=== PATIENT | female | born 1985 | race Caucasian/White ===

== ENCOUNTER 2023-09-21 20:32 | Inpatient (IN) ==
[2023-09-21] MEDS: Lactated Ringers 1000 ml BAG 1,000 ML IV ONE (22:17)
[2023-09-21 23:33] LABS: INR 1.8 (0.83-1.13)
[2023-09-21 23:35] LABS: Hematocrit 12.9 % (35-45); Hemoglobin 4.4 g/dL (11.5-14.3); White Blood Count 5.4 10^3/uL (3.8-11.8)
[2023-09-22 00:02] LABS: ALT 26 U/L (7-52); AST 58 U/L (13-39); Acetaminophen < 15 mcg/mL; Albumin 3.3 g/dL (3.2-5.2); Albumin/Globulin Ratio 1.4 (1-3); Alcohol, S < 13 mg/dL (<13); Alkaline Phosphatase 42 U/L (35-149); Anion Gap 16 mmol/L (2-16); Blood Urea Nitrogen 21 mg/dL (6-24); C Reactive Protein 32.91 mg/L (<8.01); CO2 Carbon Dioxide 36 mmol/L (22-32); Calcium 8.5 mg/dL (8.6-10.3); Chloride 88 mmol/L (101-111); Creatinine, Serum 0.93 mg/dL (0.51-0.95); Direct Bilirubin 2.4 mg/dL (0.03-0.18); Globulin 2.3 g/dL (2-4); Glucose 104 mg/dL (70-100); Indirect Bilirubin 2.5 mg/dL (0.3-1.0); Lipase 59 U/L (11.0-82.0); Magnesium 2.3 mg/dL (1.9-2.7); Potassium 2.3 mmol/L (3.5-5.0); Sodium 140 mmol/L (135-145); Total Bilirubin 4.9 mg/dL (0.2-1.0); Total Protein 5.6 g/dL (6.4-8.9); eGFR CKD-EPI 80.2 (>60)
[2023-09-22 00:12] LABS: HCG Pregnancy < 0.60 mIU/mL; LDH 247 U/L (140-271)
[2023-09-22 00:20] LABS: ABS Lymphocytes 1.5 10^3/uL (1.0-4.8); ABS Monocytes 0.2 10^3/uL (0.0-0.9); ABS Neutrophils 3.6 10^3/uL (1.5-7.6); ABS Nucleated RBC 0.01 10^3/ul; Eosinophil % 0.3 %; Lymphocyte % 27.8 %; Macrocytosis 3+; Mean Corpuscular Hemoglobin 43.7 pg (27-33); Mean Corpuscular Volume 128.6 fL (80-97); Mean Platelet Volume 6.8 fL (7.5-11.2); Nucleated Red Blood Cells % 0.1 %/100WBC (0.0-0.8); Platelet Count 230 10^3/uL (150-450); Polychromasia 1+; Red Cell Distribution Width 18.7 % (12-17)
[2023-09-22 00:39] LABS: Immature Retic Fraction 0.67
[2023-09-22 01:08] LABS: Hepatitis B Surface Antigen Nonreactive (Nonreactive)
[2023-09-22 01:13] LABS: Hepatitis A Ab IgM Negative (Negative)
[2023-09-22 01:14] LABS: Hepatitis B Core IgM Nonreactive (Nonreactive)
[2023-09-22] MEDS: Iohexol 350 (CONTRAST) 500 ML MDV IV ONE (01:17)
[2023-09-22 01:26] LABS: Hepatitis C Antibody Negative (Negative)
[2023-09-22] MEDS: KCL 20 MEQ/100 ML IVPREMIX 20 MEQ/100 ML BAG IV SCH ×3 (01:36→15:11)
[2023-09-22 01:58] LABS: Corrected Retic Count 1.4 % (0.5-2.2); RBC Retic Count 1.02 10^6/ul (3.63-4.92)
[2023-09-22] MEDS ORDERED: Polyethylene Glycol 3350 17 GM PACKET PO PRN (02:20)
[2023-09-22] MEDS ORDERED: Senna TAB 8.6 mg TAB PO PRN (02:20)
[2023-09-22 02:25] LABS: % Iron Saturation 93 % (15-55); .Transferrin 155 mg/dL (203-362); Iron 202 ug/dL (50-212); Total Iron Binding Capacity 217 mcg/dL (250-450); Unsaturated Iron Binding 15 ug/dL
[2023-09-22 02:43] LABS: Ferritin 649.2 ng/mL (11-307)
[2023-09-22 03:04] LABS: Folate 2.71 ng/mL (5.90-24.80)
[2023-09-22] MEDS ORDERED: Enoxaparin 40 MG/0.4 ML SYR SUBCUT SCH (05:00)
[2023-09-22] MEDS: Pantoprazole VIAL 40 MG VIAL IV ONE (05:20)
[2023-09-22 05:35] LABS: RBC Parasite Smear No Parasites Seen (No Parasite)
[2023-09-22] MEDS: Thiamine 100 MG/ML 2 ml VIAL (200 mg) IV ONE (08:34)
[2023-09-22 08:56] LABS: ABS Lymphocytes 1.6 10^3/uL (1.0-4.8); ABS Monocytes 0.2 10^3/uL (0.0-0.9); ABS Neutrophils 3.5 10^3/uL (1.5-7.6); ABS Nucleated RBC 0.01 10^3/ul; Eosinophil % 0.6 %; Hematocrit 18.9 % (35-45); Hemoglobin 6.7 g/dL (11.5-14.3); Lymphocyte % 29.9 %; Mean Corpuscular Hemoglobin 36.6 pg (27-33); Mean Corpuscular Hgb Conc 35.2 g/dL (31-36); Mean Corpuscular Volume 104.1 fL (80-97); Mean Platelet Volume 6.9 fL (7.5-11.2); Nucleated Red Blood Cells % 0.1 %/100WBC (0.0-0.8); Platelet Count 217 10^3/uL (150-450); Red Blood Count 1.82 10^6/uL (3.63-4.92); Red Cell Distribution Width 33.3 % (12-17); White Blood Count 5.3 10^3/uL (3.8-11.8)
[2023-09-22 09:08] LABS: Albumin 3.3 g/dL (3.2-5.2); Albumin/Globulin Ratio 1.5 (1-3); Calcium 8.2 mg/dL (8.6-10.3); Creatinine, Serum 0.83 mg/dL (0.51-0.95); Globulin 2.2 g/dL (2-4); Magnesium 2.3 mg/dL (1.9-2.7); Potassium 2.7 mmol/L (3.5-5.0); Total Bilirubin 6.8 mg/dL (0.2-1.0); Total Protein 5.5 g/dL (6.4-8.9); eGFR CKD-EPI 91.9 (>60)
[2023-09-22] MEDS: Pantoprazole VIAL 40 MG VIAL IV SCH (09:36)
[2023-09-22] MEDS: Lactulose 30 ml UDC PO SCH (09:37)
[2023-09-22] MEDS: Thiamine 100 MG/ML 2 ml VIAL 200 MG in NS 0.9% 100 ml BAG 100 ML IV ONE (09:44)
[2023-09-22] MEDS: Potassium Chlor 20 meq TAB.ER PO ONE (11:30)
[2023-09-22 14:21] LABS: Hematocrit 22.1 % (35-45); Hemoglobin 7.8 g/dL (11.5-14.3)
[2023-09-22] MEDS: Phytonadione Oral Solution 5 MG/25 ML UDC PO ONE (17:28)
[2023-09-22 18:49] LABS: Chloride 96 mmol/L (101-111); Potassium 3.8 mmol/L (3.5-5.0); Sodium 137 mmol/L (135-145)
[2023-09-22 19:22] LABS: ALT 28 U/L (7-52); Albumin 3.5 g/dL (3.2-5.2); Albumin/Globulin Ratio 1.5 (1-3); Alkaline Phosphatase 43 U/L (35-149); Anion Gap 10 mmol/L (2-16); Blood Urea Nitrogen 14 mg/dL (6-24); CO2 Carbon Dioxide 31 mmol/L (22-32); Calcium 8.2 mg/dL (8.6-10.3); Creatinine, Serum 0.81 mg/dL (0.51-0.95); Globulin 2.3 g/dL (2-4); Glucose 121 mg/dL (70-100); Total Bilirubin 7.6 mg/dL (0.2-1.0); Total Protein 5.8 g/dL (6.4-8.9); eGFR CKD-EPI 94.6 (>60)
[2023-09-23 06:15] LABS: INR 1.35 (0.83-1.13)
[2023-09-23 06:40] LABS: Albumin 3.6 g/dL (3.2-5.2); Albumin/Globulin Ratio 1.5 (1-3); C Reactive Protein 23.21 mg/L (<8.01); Calcium 8.4 mg/dL (8.6-10.3); Creatinine, Serum 0.67 mg/dL (0.51-0.95); Globulin 2.4 g/dL (2-4); Magnesium 2.1 mg/dL (1.9-2.7); Potassium 3.2 mmol/L (3.5-5.0); eGFR CKD-EPI 113.9 (>60)
[2023-09-23 09:02] LABS: ABS Eosinophils 0.1 10^3/uL (0.0-0.5); ABS Monocytes 0.2 10^3/uL (0.0-0.9); ABS Neutrophils 4.1 10^3/uL (1.5-7.6); ABS Nucleated RBC 0.01 10^3/ul; Anisocytosis 3+; Burr Cells 1+; Eosinophil % 1.1 %; Hematocrit 22.6 % (35-45); Lymphocyte % 19.1 %; Macrocytosis 2+; Mean Corpuscular Hemoglobin 35.2 pg (27-33); Mean Corpuscular Hgb Conc 35.4 g/dL (31-36); Mean Corpuscular Volume 99.4 fL (80-97); Mean Platelet Volume 7.6 fL (7.5-11.2); Nucleated Red Blood Cells % 0.3 %/100WBC (0.0-0.8); Platelet Count 207 10^3/uL (150-450); Polychromasia 1+; Red Blood Count 2.28 10^6/uL (3.63-4.92); Red Cell Distribution Width 34.3 % (12-17); White Blood Count 5.4 10^3/uL (3.8-11.8)
[2023-09-23] MEDS: KCL 20 MEQ/100 ML IVPREMIX 20 MEQ/100 ML BAG IV SCH (12:39)
[2023-09-23] MEDS: Thiamine 100 MG/ML 2 ml VIAL (200 mg) IM ONE (14:01)
[2023-09-23 16:40] LABS: Protime (Maddrey) 14.5 seconds (9.5-12.8)
[2023-09-23] MEDS: Potassium Chlor 20 meq TAB.ER PO ONE (16:42)
[2023-09-23 17:03] LABS: Total Bilirubin 6.1 mg/dL (0.2-1.0)
[2023-09-24 08:14] LABS: Hemoglobin 7.3 g/dL (11.5-14.3); Mean Corpuscular Hemoglobin 35.3 pg (27-33); Mean Corpuscular Volume 100.9 fL (80-97); Mean Platelet Volume 7.2 fL (7.5-11.2); Platelet Count 156 10^3/uL (150-450); Red Blood Count 2.08 10^6/uL (3.63-4.92); White Blood Count 5.1 10^3/uL (3.8-11.8)
[2023-09-24 08:22] LABS: INR 1.19 (0.83-1.13)
[2023-09-24 08:51] LABS: Albumin 3.4 g/dL (3.2-5.2); Albumin/Globulin Ratio 1.5 (1-3); Calcium 8.5 mg/dL (8.6-10.3); Creatinine, Serum 0.64 mg/dL (0.51-0.95); Globulin 2.2 g/dL (2-4); Total Bilirubin 4.3 mg/dL (0.2-1.0); Total Protein 5.6 g/dL (6.4-8.9); eGFR CKD-EPI 115.2 (>60)
[2023-09-24 09:19] LABS: ABS Eosinophils 0.1 10^3/uL (0.0-0.5); ABS Lymphocytes 1.2 10^3/uL (1.0-4.8); ABS Monocytes 0.2 10^3/uL (0.0-0.9); ABS Neutrophils 3.6 10^3/uL (1.5-7.6); Anisocytosis 3+; Eosinophil % 1.7 %; Lymphocyte % 23.7 %; Macrocytosis 1+; Polychromasia 2+
[2023-09-24] MEDS: KCL 20 MEQ/100 ML IVPREMIX 20 MEQ/100 ML BAG IV SCH ×2 (10:16→14:15)
[2023-09-24 11:15] LABS: Ceruloplasmin 34.7 mg/dL
[2023-09-24 13:04] LABS: Cytomegalovirus IgG Antibody Negative (Negative); EBV Capsid Ag IgG Ab Positive (Negative); EBV Capsid Ag IgM Ab Negative (Negative); Epstein-Barr Nuclear Antigen Positive (Negative)
[2023-09-24 16:29] LABS: Parvovirus (B19) IgG Antibody Positive (Negative); Parvovirus (B19) IgM Antibody Negative (Negative)
[2023-09-24 17:49] LABS: Haptoglobin 95 mg/dL (30 - 200)
[2023-09-24 18:26] LABS: Hematocrit 22.5 % (35-45); Hemoglobin 7.8 g/dL (11.5-14.3)
[2023-09-24] MEDS ORDERED: Zosyn per Pharmacy NOTE FOLLOW UP SCH (19:00)
[2023-09-24] MEDS: ZOSYN 3.375 GM x ONE DOSE over 30 miuntes IV (22:01)
[2023-09-24] MEDS: Amoxicillin/Clavul 500/125 TAB (Augmentin 500 mg tab) PO SCH (22:05)
[2023-09-25] MEDS ORDERED: Zosyn per Pharmacy NOTE FOLLOW UP SCH (03:00)
[2023-09-25] MEDS: Piperacillin/Tazobac 3.375 BAG 3.375 GM/100 ML BAG IV ONE (03:06)
[2023-09-25 06:39] LABS: Albumin 3.5 g/dL (3.2-5.2); Albumin/Globulin Ratio 1.7 (1-3); Calcium 8.8 mg/dL (8.6-10.3); Creatinine, Serum 0.66 mg/dL (0.51-0.95); Globulin 2.1 g/dL (2-4); Indirect Bilirubin 2.6 mg/dL (0.3-1.0); Phosphorus 1.3 mg/dL (2.5-5.0); Potassium 2.8 mmol/L (3.5-5.0); Total Bilirubin 4.6 mg/dL (0.2-1.0); Total Protein 5.6 g/dL (6.4-8.9); eGFR CKD-EPI 114.4 (>60)
[2023-09-25 07:01] LABS: Activated Partial Thrombo Time 29.8 seconds (26.0-38.0); INR 1.14 (0.83-1.13)
[2023-09-25] MEDS: KCL 20 MEQ/100 ML IVPREMIX 20 MEQ/100 ML BAG IV SCH (08:15)
[2023-09-25 08:22] LABS: Hematocrit 20.8 % (35-45); Hemoglobin 7.3 g/dL (11.5-14.3); Mean Corpuscular Hemoglobin 35.3 pg (27-33); Mean Corpuscular Hgb Conc 35.1 g/dL (31-36); Mean Corpuscular Volume 100.6 fL (80-97); Mean Platelet Volume 6.9 fL (7.5-11.2); Platelet Count 249 10^3/uL (150-450); Red Blood Count 2.07 10^6/uL (3.63-4.92); Red Cell Distribution Width 32.6 % (12-17); White Blood Count 5.4 10^3/uL (3.8-11.8)
[2023-09-25] MEDS: Potassium Chlor 20 meq TAB.ER PO ONE ×2 (08:22→17:21)
[2023-09-25 09:30] LABS: HSV 1 PCR, B Negative (Negative); HSV 2 PCR, B Negative (Negative)
[2023-09-25] MEDS: ZOSYN 3.375 GM Q8H per EXTENDED INFUSION IV SCH (12:31)
[2023-09-25] MEDS: cefTRIAXone 1 gm/50 mL D5W 1 GM/50 ML BAG IV SCH (12:56)
[2023-09-25] MEDS: Potassium Phosphate IV 15 MMOL in NS 0.9% 250 ml 250 ML IVPB ONE (14:11)
[2023-09-25 17:24] LABS: Anaplasma phagocytophilum Negative (Negative); B. miyamotoi PCR, B Negative (Negative); Babesia divergens/MO-1 Negative (Negative); Babesia ducani Negative (Negative); Ehrlichia chaffeensis Negative (Negative); Ehrlichia ewingii/canis Negative (Negative); Ehrlichia muris eauclairensis Negative (Negative)
[2023-09-25] MEDS: Potassium Chlor 20 meq TAB.ER PO SCH (17:24)
[2023-09-25 17:26] LABS: Hematocrit 21.7 % (35-45); Hemoglobin 7.6 g/dL (11.5-14.3)
[2023-09-26 07:03] LABS: Activated Partial Thrombo Time 31.7 seconds (26.0-38.0); INR 1.1 (0.83-1.13)
[2023-09-26 07:42] LABS: Hemoglobin 7.6 g/dL (11.5-14.3); Mean Corpuscular Hemoglobin 35.2 pg (27-33); Mean Corpuscular Hgb Conc 34.4 g/dL (31-36); Mean Corpuscular Volume 102.3 fL (80-97); Mean Platelet Volume 6.6 fL (7.5-11.2); Platelet Count 265 10^3/uL (150-450); Red Blood Count 2.15 10^6/uL (3.63-4.92); Red Cell Distribution Width 32.6 % (12-17); White Blood Count 5.3 10^3/uL (3.8-11.8)
[2023-09-26 08:35] LABS: Albumin 3.7 g/dL (3.2-5.2); Albumin/Globulin Ratio 1.6 (1-3); Calcium 8.8 mg/dL (8.6-10.3); Creatinine, Serum 0.7 mg/dL (0.51-0.95); Globulin 2.3 g/dL (2-4); Magnesium 1.9 mg/dL (1.9-2.7); Phosphorus 1.5 mg/dL (2.5-5.0); Potassium 3.1 mmol/L (3.5-5.0); Total Bilirubin 2.7 mg/dL (0.2-1.0); eGFR CKD-EPI 112.8 (>60)
[2023-09-26 10:33] LABS: Amphetamines Screen Blood None Detected; Cannabinoids Screen Blood None Detected; Cocaine Metabolites Screen Bl None Detected; Fentanyl/Acetyl FentanylScreen None Detected; Methadone Metabolites Scrn Bl None Detected; Methamphetamines/MDMA Screen None Detected; Opiates Screen Blood None Detected; Oxycodone/Oxymorphone Scrn Bl None Detected; Phencyclidine Screen Blood None Detected
[2023-09-26] MEDS: Potassium & Sodium Phos 250 mg = 1 PACKET PO SCH (11:51)
[2023-09-26] MEDS: Potassium Chlor 20 meq TAB.ER PO ONE (11:51)
[2023-09-26 17:22] LABS: Mitochondria M2 Antibody <0.1 U
[2023-09-27 06:37] LABS: Albumin 3.7 g/dL (3.2-5.2); Albumin/Globulin Ratio 1.7 (1-3); Calcium 8.9 mg/dL (8.6-10.3); Creatinine, Serum 0.63 mg/dL (0.51-0.95); Globulin 2.2 g/dL (2-4); Magnesium 1.8 mg/dL (1.9-2.7); Phosphorus 2.6 mg/dL (2.5-5.0); Potassium 3.2 mmol/L (3.5-5.0); Total Bilirubin 2.6 mg/dL (0.2-1.0); Total Protein 5.9 g/dL (6.4-8.9); eGFR CKD-EPI 115.7 (>60)
[2023-09-27 06:38] LABS: INR 1.17 (0.83-1.13)
[2023-09-27 07:16] LABS: Hematocrit 20.6 % (35-45); Hemoglobin 7.1 g/dL (11.5-14.3); Mean Corpuscular Hemoglobin 35.8 pg (27-33); Mean Corpuscular Hgb Conc 34.6 g/dL (31-36); Mean Corpuscular Volume 103.3 fL (80-97); Mean Platelet Volume 6.2 fL (7.5-11.2); Platelet Count 268 10^3/uL (150-450); Red Blood Count 1.99 10^6/uL (3.63-4.92); Red Cell Distribution Width 32.6 % (12-17); White Blood Count 4.9 10^3/uL (3.8-11.8)
[2023-09-27] MEDS: Potassium Chlor 20 meq TAB.ER PO ONE ×2 (08:05→10:02)
[2023-09-27] MEDS: Magnesium Sulfate 2 gm BAG 2 GM/50 ML BAG IVPB ONE (10:16)
[2023-09-27 13:48] LABS: Hematocrit 22.9 % (35-45); Hemoglobin 7.5 g/dL (11.5-14.3)
[2023-09-27 14:03] VITALS: BP 126/95
[2023-09-27 15:31] LABS: Mono-Oligosaccharide/Di-Oligos 0.02 (0.00-0.10)
== END 2023-09-27 16:25 | disposition home or self-care (01) | DRG 441 ==
LOC: ED 20:32 → EDHOLD 20:32 → MEDTELE 09-22 03:40
PROVIDERS: ADMIT Student in an Organized Health Care Education/Training Program; ATTEND Student in an Organized Health Care Education/Training Program